=== PATIENT | male | born 1955 | race Caucasian/White ===

== ENCOUNTER 2024-07-31 13:20 | Emergency (ER) | payer MEDICARE, OTHER ==
[2024-07-31] MEDS: ceFAZolin 1 GM Vial IM ONE (16:15)
== END 2024-07-31 16:18 | disposition home or self-care (01) ==
LOC: JD.ED 13:20
DX: S68.112A Complete traumatic metacarpophalangeal amputation of right middle finger, initial encounter (principal); Z79.899 Other long term (current) drug therapy; W23.1XXA Caught, crushed, jammed, or pinched between stationary objects, initial encounter; Y93.89 Activity, other specified
CPT/HCPCS: 73120; 93005; 96372; 99283; J0690

== ENCOUNTER 2024-08-02 07:00 | Day surgery (SDC) | payer MEDICARE, OTHER ==
[~2024-08-02 07:00] MED LIST: Sodium Chloride 0.9% 10 ML Syringe FLUSH PRN; Sodium Chloride 0.9% 10 ML Syringe FLUSH SCH
[2024-08-02] MEDS: Lactated Ringers 1,000 ML IV SCH (07:05)
[2024-08-02] MEDS ORDERED: fentaNYL 100 MCG/2 ML SDV IVPUSH PRN (07:20)
[2024-08-02] MEDS ORDERED: HYDROmorphone 0.5 MG/0.5 ML Syringe IVPUSH PRN (07:20)
[2024-08-02] MEDS ORDERED: Ondansetron 4 MG/2 ML SDV IVPUSH PRN (07:20)
[2024-08-02] MEDS ORDERED: Propofol 200 MG/20 ML SDV ONE ×2 (07:32→08:50)
[2024-08-02] MEDS ORDERED: Midazolam 1 MG/ML 2 ML SDV ONE (07:32)
[2024-08-02] MEDS ORDERED: fentaNYL 100 MCG/2 ML SDV ONE (07:32)
[2024-08-02] MEDS ORDERED: Ketamine 200 MG/20 ML MDV ONE (07:33)
[2024-08-02] MEDS ORDERED: ceFAZolin 2 GM Vial ONE (08:57)
[2024-08-02] MEDS ORDERED: Ondansetron 4 MG/2 ML SDV ONE (08:57)
[2024-08-02] MEDS: Lidocaine 1% 30 ML SDV ONE (09:10)
[2024-08-02] MEDS: Bupivacaine 0.25% 10 ML SDV ONE (09:10)
== END 2024-08-02 10:25 | disposition home or self-care (01) ==
LOC: JD.SDS 07:00
PROVIDERS: ATTEND Orthopaedic Surgery
DX: S68.112A Complete traumatic metacarpophalangeal amputation of right middle finger, initial encounter (principal); X58.XXXA Exposure to other specified factors, initial encounter
CPT/HCPCS: 01830; J0665; J0690; J2250; J2405; J2704; J3010; J3490; J7120